=== PATIENT | male | born 1965 | race African-American/Black ===

== ENCOUNTER → 2018-09-11 | Outpatient (CLI) | payer OTHER ==
--- NOTE | 2018-09-11 15:19 | RAD ---
Examination: Ultrasound testis HISTORY: History of acute epididymitis COMPARISON: None available FINDINGS: The right testis measures 2.8 x 1.5 x 2.0 cm, the left testis measures 3.2 x 2.9 x 2.9 cm. Blood flow identified in the right and left testis. Small bilateral hydrocele identified. The right epididymis head measures 1.4 cm. The left epididymis head measures 1.9 cm IMPRESSION: Small bilateral hydrocele. Electronically signed by: Leo Rice MD (09/11/2018 3:17 PM) [place] [id number]
== END | disposition home or self-care (01) ==
LOC: US 13:51
PROVIDERS: ATTEND Preventive Medicine Occupational Medicine
DX: N43.3 Hydrocele, unspecified (principal)
CPT/HCPCS: 76870